=== PATIENT | female | born 1985 | race Caucasian/White ===

== ENCOUNTER 2017-11-10 21:05 | Emergency (ER) | payer OTHER ==
[2017-11-10 21:15] VITALS: BP 135/81; BMI 34.7
--- NOTE | 2017-11-10 22:28 | DR.GENAD ---
HPI - PCP Primary Care Physician: melvin - Complaint/Symptoms Chief Complaint Doctors Comments: ABDOMINAL PAIN, MIGRAINE HEADACHE TIMES Chief Complaint:: stomach pain migraine Self Treatment fo Chief Complaint: patient ahs done a colon cleanse today and has take linzess. patient has take toradol zofran and decadron at her pcp today for migraines - Nurses notes reviewed Nurses Notes Review: Yes - Source History Provided: Patient - Mode of Arrival Mode of Arrival: Ambulatory - Timing Onset of Chief Complaint: 10/20/17 Came on: Gradually - Duration Duration: Constant Duration: Days - Severity Severity: Moderate PMH - PMH Past Medical History: Yes Past Medical History: Headaches Past Surgical History: Yes Surgical History: Cholecystectomy Past Surgical History Comment: left knee repair - Family History History of Family Medical Conditions: Yes Family Medical History: Diabetes Mellitus, Cancer, Coronary Artery Disease, Hypertension - Social History Does patient currently use any type of tobacco product: No Have you used tobacco products in the last 12 months: No Type of Tobacco Use: None Does any household member use tobacco: No Alcohol Use: None Do you use any recreational Drugs:: No Lives With: Family Lives Where: Home - infectious screening In the last 2 months have you had wt loss of >10#?: NO Have you had fever, night sweats or hemotysis?: No Have you traveled outside the country in the last 6 months?: No Isolation: Standard ROS - Review of Systems Constitutional: No Symptoms Reported Eyes: No Symptoms Reported ENTM: No Symptoms Reported Respiratoy: No Symptoms Reported Cardiovascular: No Symptoms Reported Gastrointestinal/Abdominal: No Symptoms Reported Genitourinary: No Symptoms Reported Neurological: No Symptoms Reported Musculoskeletal: No Symptoms Reported Integumentary: No Symptoms Reported Hematologic/Lymphatic: No Symptoms Reported Endocrine: No Symptoms Reported All Other Systems: Reviewed and Negative PE - Vital Signs Vitals: Temperature 97.9 F Pulse Rate 95 Respiratory Rate 16 Blood Pressure 135/81 O2 Sat by Pulse Oximetry 96 - General Limitations: No Limitations General Appearance: Alert - Head Head Exam: Normal Inspection - Eyes Eye exam: Normal Appearance - ENT ENT Exam: Normal External Ear Exam External Ear Exam: Normal External Inspection TM/Canal Exam: Bilateral Normal Nose Exam: Normal Nose Exam Mouth Exam: Normal Inspection Throat Exam: Normal Inspection - Neck Neck Exam: Trachea Midline - Chest Chest Inspection: Symmetric Chest Wall Rise - Respiratory Respiratory Exam: Normal Lung Sounds Bilat Respiratory Exam: Bilateral Clear to Auscultation - Cardiovascular Cardiovascular Exam: Regular Rate, Normal Rhythm, Normal Heart Sounds - Abdominal Exam Abdominal Exam: Normal Bowel Sounds, Soft, Tenderness - Extremities Extremities Exam: Normal Inspection - Back Back Exam: Normal Inspection - Neurologic Neurological Exam: Alert, Oriented X3 - Psychiatric Psychiatric Exam: Normal Affect, Normal Mood - Skin Skin Exam: Normal Color MDM - Additional Information Additional Information Obtained From: Family - Differential Diagnosis Differential Diagnosis: ABDOMINAL PAIN, MIGRAIN HEADACHE ROR - Labs Reviewed Result Diagrams: 11/10/17 22:47 11/10/17 22:47 Laboratory: WBC 8.6 X10^3/uL (3.6-10.0) 11/10/17 22:47 RBC 4.13 X10^6/uL (3.5-5.4) 11/10/17 22:47 Hgb 13.1 g/dL (12.0-16.0) 11/10/17 22:47 Hct 38.3 % (36.0-47.0) 11/10/17 22:47 MCV 92.8 fL (80.0-100.0) 11/10/17 22:47 MCH 31.7 pg (27.0-34.0) 11/10/17 22:47 MCHC 34.1 g/dL (33.0-35.0) 11/10/17 22:47 RDW 13.0 % (11.6-16.5) 11/10/17 22:47 Plt Count 355 X10^3/uL (150.0-450.0) 11/10/17 22:47 MPV 8.6 fL (7.4-11.0) 11/10/17 22:47 Neut % 82.0 % (42.0-75.0) H 11/10/17 22:47 Lymph % 14.1 % (21.0-51.0) L 11/10/17 22:47 [place] % 2.6 % (0.0-13.0) 11/10/17 22:47 Eos % 0.0 % (0.9-2.9) L 11/10/17 22:47 Baso % 1.3 % (0.2-1.0) H 11/10/17 22:47 Neut # 7.0 x10^3/uL (2.2-4.8) H 11/10/17 22:47 Lymph # 1.2 X10^3/uL (1.3-2.9) L 11/10/17 22:47 [place] # 0.2 x10^3/uL (0.3-0.8) L 11/10/17 22:47 Eos # 0.0 x10^3/uL (0.0-0.2) 11/10/17 22:47 Baso # 0.1 X10^3/uL (0.0-0.1) 11/10/17 22:47 Absolute Nucleated RBC 0.0 /100WBC 11/10/17 22:47 Sodium 138 mmol/L (136-145) 11/10/17 22:47 Corrected Sodium TNP 11/10/17 22:47 Potassium 4.1 mmol/L (3.5-5.1) 11/10/17 22:47 Chloride 105 mmol/L (98-107) 11/10/17 22:47 Carbon Dioxide 22.5 mmol/L (21-32) 11/10/17 22:47 BUN 13 mg/dL (7-18) 11/10/17 22:47 Creatinine 0.80 mg/dL (0.55-1.02) 11/10/17 22:47 Est GFR (MDRD) Af Amer > 60 (>60) 11/10/17 22:47 Est GFR (MDRD) Non-Af > 60 (>60) 11/10/17 22:47 Glucose 100 mg/dL (65-99) H 11/10/17 22:47 Calcium 9.1 mg/dL (8.5-10.1) 11/10/17 22:47 Corrected Calcium TNP 11/10/17 22:47 Total Bilirubin 0.30 mg/dL (0.2-1.0) 11/10/17 22:47 AST 23 Units/L (15-37) 11/10/17 22:47 ALT 39 Units/L (12-78) 11/10/17 22:47 Alkaline Phosphatase 65 Units/L (46-116) 11/10/17 22:47 Total Protein 8.2 g/dL (6.4-8.2) 11/10/17 22:47 Albumin 3.8 g/dL (3.4-5.0) 11/10/17 22:47 Globulin 4.4 g/dL (2.5-4.5) 11/10/17 22:47 Albumin/Globulin Ratio 0.9 Ratio (1.1-2.1) L 11/10/17 22:47 Amylase 37 Units/L (25-115) 11/10/17 22:47 Lipase 134 Units/L (73-393) 11/10/17 22:47 - Discharge Plan Condition: Stable - Follow ups/Referrals Follow ups/Referrals: Bhakti GARBER [Primary Care Provider] - 3 days - Instructions Instructions: Abdominal Pain, Adult, [id number], Constipation, Adult, Easy-to -Read, Migraine Headache, [id number]
[2017-11-10] MEDS ORDERED: ZOFRAN INJ 4 MG VIAL IM ONE (22:40)
[2017-11-10] MEDS ORDERED: DEMEROL INJ IM ONE (22:40)
[2017-11-10] MEDS ORDERED: ZOFRAN INJ 4 MG VIAL ONE (22:48)
[2017-11-10] MEDS ORDERED: DEMEROL INJ ONE (22:48)
[2017-11-10 22:53] LABS: BASOPHILS # (AUTO) 0.1 X10^3/uL (0.0-0.1); BASOPHILS % (AUTO) 1.3 % (0.2-1.0); HEMATOCRIT 38.3 % (36.0-47.0); HEMOGLOBIN 13.1 g/dL (12.0-16.0); LYMPHOCYTES # (AUTO) 1.2 X10^3/uL (1.3-2.9); LYMPHOCYTES % (AUTO) 14.1 % (21.0-51.0); MEAN CORPUSCULAR HEMOGLOBIN 31.7 pg (27.0-34.0); MEAN CORPUSCULAR HGB CONC 34.1 g/dL (33.0-35.0); MEAN CORPUSCULAR VOLUME 92.8 fL (80.0-100.0); MEAN PLATELET VOLUME 8.6 fL (7.4-11.0); MONOCYTES # (AUTO) 0.2 x10^3/uL (0.3-0.8); MONOCYTES % (AUTO) 2.6 % (0.0-13.0); PLATELET COUNT 355 X10^3/uL (150.0-450.0); RED BLOOD COUNT 4.13 X10^6/uL (3.5-5.4); WHITE BLOOD COUNT 8.6 X10^3/uL (3.6-10.0)
--- NOTE | 2017-11-10 23:08 | RAD ---
Acute abdominal series with PA chest Indication: Right lower quadrant pain after colon cleanse Comparison: None available Findings: The heart size is normal and the lungs are clear. There is moderate colonic stool. The tony l gas pattern is nonobstructed, although relative paucity small bowel gas limits evaluation. No gross free air. Cholecystectomy clips overlie the right upper quadrant. Impression: Moderate colonic stool. No acute process. Reported By:
[2017-11-10 23:11] LABS: ALANINE AMINOTRANSFERASE 39 Units/L (12-78); ALBUMIN 3.8 g/dL (3.4-5.0); ALKALINE PHOSPHATASE 65 Units/L (46-116); AMYLASE 37 Units/L (25-115); ASPARTATE AMINO TRANSFERASE 23 Units/L (15-37); BLOOD UREA NITROGEN 13 mg/dL (7-18); CALCIUM 9.1 mg/dL (8.5-10.1); CARBON DIOXIDE 22.5 mmol/L (21-32); CHLORIDE 105 mmol/L (98-107); LIPASE 134 Units/L (73-393); SODIUM 138 mmol/L (136-145); TOTAL PROTEIN 8.2 g/dL (6.4-8.2); eGFR BLACK RACES > 60 (>60); eGFR NON BLACK RACES > 60 (>60)
== END 2017-11-11 | disposition home or self-care (01) ==
LOC: ER 21:20
DX: R10.84 Generalized abdominal pain (principal); G43.909 Migraine, unspecified, not intractable, without status migrainosus; K59.09 Other constipation
CPT/HCPCS: 36415; 74022; 80053; 82150; 83690; 85025; 96372; 99283; J2175; J2405